=== PATIENT | female | born 1985 | race Caucasian/White ===

== ENCOUNTER → 2022-11-11 | Outpatient (CLI) | payer OTHER, MEDICAID, SELFPAY ==
--- NOTE | 2022-11-11 08:48 | RAD_ITS ---
EXAM: FL Upper GI Double Contrast with Shell Machine Operator and delayed images if performed HISTORY: HIATAL HERNIA COMPARISON: None Technique: Air contrast, fluoroscopy time of 1 minute 3 seconds, 11 fluoroscopic images obtained, radiation dose of 14.47mGy FINDINGS: Swallowing was initiated normally. No nasopharyngeal reflux or aspiration. No evidence of a Zenker''s diverticulum noted on the lateral view. Normal peristaltic activity noted in the proximal mid and distal esophagus. No intraesophageal reflux, but there was significant GE reflux noted. No significant hiatal hernia noted. The stomach distends normally without evidence of rugal folds enlargement or mucosal ulceration. There is a subtle gastric diverticulum noted along the proximal aspect of the lesser curvature of the stomach seen on image 4/5. The duodenal C-loop is not elongated and demonstrates a normal mucosal pattern. Ligament of Treitz is in its normal expected position left of the spine. RAD/Upper GI Dual Contrast IMPRESSION: GE reflux Electronically Signed: Sajan Mancuso MD at 9:39 EDT ,
== END | disposition home or self-care (01) ==
LOC: RAD 08:45
PROVIDERS: PCP Family Medicine; Referring Provider Surgery; Visit Provider Surgery
DX: K44.9 Diaphragmatic hernia without obstruction or gangrene (principal)
CPT/HCPCS: 74246

== ENCOUNTER → 2022-11-12 | Day surgery (SDC) | payer OTHER, MEDICAID, SELFPAY ==
[2022-11-12 07:40] VITALS: BP 112/75; PULSE 83; RESP 16; TEMP 37.1; O2SAT 100
[2022-11-12] MEDS: Lidocaine Jelly 2% 20 ML Syringe (URO-JET) 1 APPLIC (07:40)
== END | disposition home or self-care (01) ==
LOC: EN 07:26
PROVIDERS: PCP Family Medicine; Referring Provider Family Medicine; Visit Provider Surgery
PROC: F00ZJWZ Instrumental Swallowing and Oral Function Assessment using Swallowing Equipment (ICD-10-PCS; CPT 43235; principal; 2022-11-12 07:25)
DX: K21.9 Gastro-esophageal reflux disease without esophagitis (principal); K44.9 Diaphragmatic hernia without obstruction or gangrene
CPT/HCPCS: 91010

== ENCOUNTER 2023-01-05 10:30 | Observation (INO) | payer OTHER, MEDICAID, SELFPAY ==
--- NOTE | 2022-12-31 08:28 | EKG12_ITS ---
Test Reason : PRE-OP Blood Pressure : / mmHG Vent. Rate : 081 BPM Atrial Rate : 081 BPM P-R Int : 154 ms QRS Dur : 076 ms QT Int : 384 ms P-R-T Axes : 051 027 009 degrees QTc Int : 446 ms Normal sinus rhythm Normal ECG Confirmed by ONUR HENDERSON, SARAH ([id number]), material expeditor BETHEL CRAIG ([id number]) on 01/04/2023 8:41:37 AM Referred By: Lui Szymanski Confirmed By:SARAH MOHR MD
[2022-12-31 09:55] LABS: Hemoglobin 10.9 g/dL (12.0-15.0); Mean Corp Hgb Conc 30.3 g/dL (32-36); Mean Corpuscular Hgb 23.8 pg (27.0-32.0); Mean Corpuscular Volume 78.6 fL (81-99); Mean Platelet Vol. 11.9 fl (6.2-12.0); Platelet Count 316 K/mm3 (150-450); RBC Distribution Width CV 16.3 % (11.6-14.6); RBC Distribution Width SD 46.2 fl (35.1-43.9); Red Blood Count 4.58 M/mm3 (4.2-5.4); White Blood Count 7.1 K/mm3 (4.4-11.0)
[2022-12-31 10:30] LABS: Anion Gap 6 (5-15); BUN 12 mg/dL (7-18); BUN/Creat Ratio 13.3 RATIO (10-20); Calcium,Total 8.6 mg/dL (8.5-10.1); Chloride 107 mmol/L (98-107); EST Glomerular Filtration Rate 73 mL/min (>60); Est Glom Filt Rate - Afr Amer 89 mL/min (>60); Glucose 120 mg/dL (74-106); Potassium 3.9 mmol/L (3.5-5.1); Sodium Level 137 mmol/L (136-145)
[2023-01-05] VITALS (13 sets, daily range): BP systolic 108–131; BP diastolic 60–85; PULSE 68–85; RESP 16–18; TEMP 35.6–37; O2SAT 93–100; BMI 35.2
--- NOTE | 2023-01-05 06:44 | PCM.HP.BLA ---
History and Physical Date of Admission: 01/05/23 Allergies weed pollen Allergy (Mild, Verified 11/23/22 08:36) Itchingmethylprednisolone [From Medrol] Adverse Reaction (Mild, Verified 11/23/22 08:36) Upset Stomachcats Allergy (Intermediate, Uncoded 11/23/22 08:36) Itchingmobic Allergy (Intermediate, Uncoded 11/23/22 08:36) Rash Medications acyclovir 400 mg tablet 400 mg PO DAILY 11/05/22 [History Confirmed 11/23/22] ascorbate calcium (vitamin C) 500 mg tablet 500 mg PO DAILY 11/05/22 [History Confirmed 11/23/22] cetirizine 10 mg tablet (Zyrtec) 10 mg PO DAILY PRN 11/05/22 [History Confirmed 11/23/22] cholecalciferol (vitamin D3) 10 mcg (400 unit) capsule 10 mcg PO DAILY 11/05/22 [History Confirmed 11/23/22] escitalopram oxalate 20 mg tablet (Lexapro) 20 mg PO DAILY 11/05/22 [History Confirmed 11/23/22] lansoprazole 30 mg capsule,delayed release (Prevacid) 30 mg PO DAILY 11/05/22 [History Confirmed 11/23/22] magnesium 200 mg tablet 200 mg PO DAILY 11/05/22 [History Confirmed 11/23/22] methocarbamol 100 mg/mL injection solution (Robaxin) 1 g IM ONCE 11/05/22 [History Confirmed 11/23/22] psyllium husk 0.4 gram capsule (Daily Fiber) 0.4 g PO DAILY 11/05/22 [History Confirmed 11/23/22] sucralfate 1 gram tablet (Carafate) 1 g PO QAC 11/05/22 [History Confirmed 11/23/22] sumatriptan succinate 100 mg tablet 100 mg PO ONCE 11/05/22 [History Confirmed 11/23/22] topiramate 25 mg capsule,extended release 24 hr 25 mg PO DAILY 11/05/22 [History Confirmed 11/23/22] zinc acetate 25 mg (zinc) capsule 25 mg PO DAILY 11/05/22 [History Confirmed 11/23/22] PFSH Medical History?(Updated 11/23/22 @ 08:35 by Chelsea Evans) Gastric diverticulum GERD with esophagitis Hiatal hernia Surgical History?(Updated 11/23/22 @ 08:35 by Chelsea Evans) S/P dilatation of esophageal stricture HPI HPI HPI: 37-year-old female.? She returns to discuss her hiatal hernia and gastroesophageal reflux disease problems.? On November 11, 2022 at the [facility] she had a contrast upper GI study.? I have personally reviewed these images.? Not felt to be a significant hiatal hernia.? There is GE reflux noted.? There is a gastric diverticulum along the lesser curvature of the stomach proximally. On November 12, 2022 the patient had esophageal manometry performed at the [facility].? 10 swallows were analyzed.? There was delayed bolus transit and a few swallows but the force of the swallow appears to be normal.? Normal LES tone and residual tone.? Normal study. November 11, 2022 EXAM: FL Upper GI Double Contrast with Dry House Wheeler and delayed images if performed HISTORY: HIATAL HERNIA COMPARISON: None Technique: Air contrast, fluoroscopy time of 1 minute 3 seconds, 11 fluoroscopic images obtained, radiation dose of 14.47mGy FINDINGS: Swallowing was initiated normally. No nasopharyngeal reflux or aspiration. No evidence of a Zenker''s diverticulum noted on the lateral view. Normal peristaltic activity noted in the proximal mid and distal esophagus. No intraesophageal reflux, but there was significant GE reflux noted. No significant hiatal hernia noted. The stomach distends normally without evidence of rugal folds enlargement or mucosal ulceration. There is a subtle gastric diverticulum noted along the proximal aspect of the lesser curvature of the stomach seen on image 4/5. The duodenal C-loop is not elongated and demonstrates a normal mucosal pattern. Ligament of Treitz is in its normal expected position left of the spine. RAD/Upper GI Dual Contrast IMPRESSION: ? GE reflux ? Electronically Signed: Sajan Mancuso MD at 9:39 EDT , My previous notes reflect the following Visit Reasons:?HIATAL HERNIA Chief Complaint: hiatal hernia Allergies weed pollen Allergy (Mild, Verified 11/05/22 09:31) Itchingmethylprednisolone [From Medrol] Adverse Reaction (Mild, Verified 11/05/22 09:31) Upset Stomachcats Allergy (Intermediate, Uncoded 11/05/22 09:31) Itchingmobic Allergy (Intermediate, Uncoded 11/05/22 09:31) Rash Medications acyclovir 400 mg tablet 400 mg PO DAILY 11/05/22 [History Confirmed 11/05/22] ascorbate calcium (vitamin C) 500 mg tablet 500 mg PO DAILY 11/05/22 [History Confirmed 11/05/22] cetirizine 10 mg tablet (Zyrtec) 10 mg PO DAILY PRN 11/05/22 [History Confirmed 11/05/22] cholecalciferol (vitamin D3) 10 mcg (400 unit) capsule 10 mcg PO DAILY 11/05/22 [History Confirmed 11/05/22] escitalopram oxalate 20 mg tablet (Lexapro) 20 mg PO DAILY 11/05/22 [History Confirmed 11/05/22] lansoprazole 30 mg capsule,delayed release (Prevacid) 30 mg PO DAILY 11/05/22 [History Confirmed 11/05/22] magnesium 200 mg tablet 200 mg PO DAILY 11/05/22 [History Confirmed 11/05/22] methocarbamol 100 mg/mL injection solution (Robaxin) 1 g IM ONCE 11/05/22 [History Confirmed 11/05/22] psyllium husk 0.4 gram capsule (Daily Fiber) 0.4 g PO DAILY 11/05/22 [History Confirmed 11/05/22] sucralfate 1 gram tablet (Carafate) 1 g PO QAC 11/05/22 [History Confirmed 11/05/22] sumatriptan succinate 100 mg tablet 100 mg PO ONCE 11/05/22 [History Confirmed 11/05/22] topiramate 25 mg capsule,extended release 24 hr 25 mg PO DAILY 11/05/22 [History Confirmed 11/05/22] zinc acetate 25 mg (zinc) capsule 25 mg PO DAILY 11/05/22 [History Confirmed 11/05/22] HPI HPI HPI: 37-year-old female.? She is being referred by digestive disease consultants Dr Darren Toney with primary physician Dr Brandon Appiah for surgical consultation regarding GERD.? A written copy of my surgical consult will be returned to them. At [facility] on April 19, 2022 the patient had a right quadrant ultrasound.? Inferior laterally right hepatic lobe is a 15 x 17 x 14 mm structure consistent with hemangioma.? Previously it measured 17 x 18 x 18 mm on May 23, 2019.? There is evidence of a previous cholecystectomy.? Lesion was felt to be stable.? On May 21, [address] Toney the patient had a esophagogastroduodenoscopy with biopsy and Phoenix dilatation.? A 2 cm hiatal hernia was noted from 39 to 41 cm.? There is evidence of a distal esophageal stricture treated with a 60 Chinese Phoenix dilatation.? There were 2 sessile polyps in the body and fundus both 5 mm and excisionally biopsied.? There was felt to be a diverticulum in the fundus with a 15 mm opening.? Gastric biopsies showed reactive gastropathy with H. pylori negative.? The gastric polyps were hyperplastic polyp and a fundic gland polyp.? The GE junction showed inflamed squamocolumnar lumbar mucosa.? Rushign's was not identified. Patient has 2 concerns.? She has been having epigastric retrosternal pain.? This is been getting worse.? She has been placed on a proton pump inhibitor and Carafate.? She does not have the head of her bed elevated but she says she sleeps on a pillow that raises her up.? She stops eating food at 6 PM.? She is not a tobacco user.? She lost her father and that caused her to gain weight with her depression.? She states that she has lost 10 of the pounds that she gained. She is also complaining of a sensation at the anterior tracheal area and location of globus.? She is not sure whether her epigastric pain and globus are 1 in the same issue. She was diagnosed with reflux disease going back to 2008.? She states she can be awakened at night the pain can last all day.? She had a upper endoscopy at least in 2008 and then her most recent 01 May 2022.? She has a family history with colon cancer in her maternal grandfather and she is to be seeing Dr. Toney for a future colonoscopy. She has a known hemangioma of the liver which is unchanged.? Her cholecystectomy was in 2016 so she had the reflux symptoms and is seeding this by years. She denies any bright red blood per rectum or melena.? She states that she does not have diffuse crampy symptoms nor previously been diagnosed with IBS symptoms ROS General General: Yes weight change; No appetite, fatigue, colon cancer, breast cancer or weakness HEENT HEENT: No difficulty swallowing, eye injury, eye surgery, swollen glands or hoarseness Endo Endocrine: No thyroid disease, diabetes mellitus, thyroid cancer, Hair loss, heat intolerance or cold intolerance Skin Skin: No rash or changing moles Breast Breast: No left breast lump, right breast lump, nipple discharge, breast pain, abnormal mammogram, abnormal US or breast enlargement Musc Musculoskeletal: Yes back problems; No arthritis, rheumatoid arthritis, gout or joint pain Cardio Cardiovascular: No murmur, pacemaker, heart disease, atrial fibrillation, high blood pressure, heart attack, heart stent, palpitations, shortness of breat with exertion or chest pain Psych Psychiatric: Yes depression and anxiety; No hearing voices Resp Respiratory: No shortness of breath, No sleep apnea, No cough, No COPD, No asthma, No emphysema and No wheezing Gastro Gastrointestinal: Yes abdominal pain, Yes nausea or vomiting, No diarrhea, No constipation, No blood in stool, Yes acid reflux, No hemorrhoids, No ulcers, No gallbladder problem and No black,tarry stools Jj Hematologic: No blood thinners, No blood disorders, No bleeding, No anemia and No blood clots Neuro Neurologic: No system reviewed and no additional complaints, except as documented, No as per HPI, No abnormal gait, No abnormal hearing, No abnormal movements, No abnormal speech, No behavioral changes, No burning sensations, No confusion, No convulsions, No disequilibrium, No dizziness, No localized weakness, No frequent falls, No headache(s), No lack of coordination, No loss of vision, No memory loss, No numbness, No other visual disturbances, No radicular pain, No restless legs, No sensory deficit, No syncope, No tingling, No tremor(s), No weakness and No other Exam Const General: cooperative, healthy appearing, comfortable and no acute distress Nutritional Appearance: obese [facility] Head: normal to inspection Eyes General: appearance normal, both eyes and all related structures Neck Neck: normal visual inspection Chest Chest palpation & inspection: normal inspection of the chest Resp Effort & Inspection: normal respiratory effort Auscultation: clear to auscultation bilaterally Cardio Rate: regular rate Rhythm: regular rhythm GI Palpation: soft and no hepatosplenomegaly Auscultation: normal bowel sounds Musc Cervical Spine: normal cervical lordosis Skin General: no rashes or lesions noted Other: Multiple tattoos noted Neuro General: patient alert and patient oriented x3 Extrem General: no calf tenderness Psych Appearance: grossly normal Assessment and Plan Assessment and Plan (1) GERD with esophagitis: ?Status:?Acute (2) Hiatal hernia: ?Status:?Acute (3) S/P dilatation of esophageal stricture: ?Status:?Acute ?Plan: Gastroesophageal reflux disease with biopsy-proven esophagitis and EG junction stricture dilated.? She has ongoing escalation of symptoms despite proton pump inhibitor therapy and site of protectant. Symptoms may have escalated secondary to recent weight gain and she is trying hard to lose some of the weight that she is put on.? I certainly encourage her at trying to maintain those efforts. I have briefly spoken with her with the surgical concepts of laparoscopic repair of hiatal hernia with either partial or complete wraps.? I would like to obtain a contrast upper GI study as well as esophageal manometry.? We will then have the patient return subsequently to help discuss treatment options. Her BMI reported per Dr. Toney was approximately 32 but we have her currently at 36.? Hopefully she is able to make an impact upon that.? The patient additionally is aware that I certainly believe that her epigastric discomfort is secondary to her reflux problems.? It is less clear that I can guarantee that the globus sensation is secondary to the same so she has been instructed that those symptoms might or may not disappear with surgical repair of her reflux issues. She has had an opportunity to ask and have questions answered.? I very much appreciate the kind opportunity of assisting with her surgical care. Copy:Dr Darren Toney and Dr Brandon Szymanski M.D., F.A.C.S. ROS General General: Yes weight change; No appetite, fatigue, colon cancer, breast cancer or weakness HEENT HEENT: No difficulty swallowing, eye injury, eye surgery, swollen glands or hoarseness Endo Endocrine: No thyroid disease, diabetes mellitus, thyroid cancer, Hair loss, heat intolerance or cold intolerance Skin Skin: No rash or changing moles Breast Breast: No left breast lump, right breast lump, nipple discharge, breast pain, abnormal mammogram, abnormal US or breast enlargement Musc Musculoskeletal: Yes back problems; No arthritis, rheumatoid arthritis, gout or joint pain Cardio Cardiovascular: No murmur, pacemaker, heart disease, atrial fibrillation, high blood pressure, heart attack, heart stent, palpitations, shortness of breat with exertion or chest pain Psych Psychiatric: Yes depression and anxiety; No hearing voices Resp Respiratory: No shortness of breath, No sleep apnea, No cough, No COPD, No asthma, No emphysema and No wheezing Gastro Gastrointestinal: Yes abdominal pain, Yes nausea or vomiting, No diarrhea, No constipation, No blood in stool, Yes acid reflux, No hemorrhoids, No ulcers, No gallbladder problem and No black,tarry stools Jj Hematologic: No blood thinners, No blood disorders, No bleeding, No anemia and No blood clots Neuro Neurologic: No system reviewed and no additional complaints, except as documented, No as per HPI, No abnormal gait, No abnormal hearing, No abnormal movements, No abnormal speech, No behavioral changes, No burning sensations, No confusion, No convulsions, No disequilibrium, No dizziness, No localized weakness, No frequent falls, No headache(s), No lack of coordination, No loss of vision, No memory loss, No numbness, No other visual disturbances, No radicular pain, No restless legs, No sensory deficit, No syncope, No tingling, No tremor(s), No weakness and No other Assessment and Plan Assessment and Plan (1) S/P dilatation of esophageal stricture: ?Status:?Acute (2) Hiatal hernia: ?Status:?Acute (3) GERD with esophagitis: ?Status:?Acute (4) Gastric diverticulum: ?Status:?Acute Plan Patient states that she rarely burps or belches.? She is age 37 almost 38 so perhaps a more durable procedure in the form of a laparoscopic Renny fundoplication would be reasonable.? I did take 20 minutes [id number] time today discussing the technique benefit risk complication alternatives for laparoscopic Renny fundoplication in comparing compressive that to a laparoscopic toupet procedure.? For her I would favor the laparoscopic Renny.? She is aware of technique, benefit, risk, alternatives.? She has already received dietary and post activity instructional sheets. She did state that she is also in need of a screening colonoscopy.? She will check with her insurance and then we will schedule and proceed with that as noted.? Previous colonoscopy 2003.? Family history maternal grandfather and maternal aunt both who had colon cancer. She has had an opportunity to ask and have questions answered.? She works from home and I anticipate 1 to 2 weeks of being off from those responsibilities.? She is aware that her dietary advancement may take longer than that time period Copy:Brandon Appiah MD and Dr Darren Toney? The patient has not had any new or acute symptoms. Health regalado she is otherwise stable but she is suffering currently from allergies and some sinus congestion. Dr. Luis Enrique Rao anesthesiology is aware and the patient has been treated with allergy medications. She has had an opportunity to ask and have questions answered. History and physical was reviewed. We will proceed with planned laparoscopic repair of her hiatal hernia taking care to avoid the gastric diverticulum and do a Renny fundoplication for reflux treatment. Lui Szymanski M.D., F.A.C.S
[2023-01-05] MEDS: Lactated Ringers 1,000 ML 15 ML IV ×2 (06:46→10:51)
--- NOTE | 2023-01-05 07:13 | EX.PCM.DISCH ---
Discharge Instructions Procedure General Surgery Diet Discharge Diet: - (Diet as per office provided instructions) Activity Discharge Activity: May Not Drive (for 3-5 days or while taking narcotic pain medicine.) May shower in (days): 1 Lifting Restrictions: 10 pounds Dressing / Incision Call your doctor if your incision/area has: Continuous Slow Oozing, Sudden Increased Bleeding, Increased Pain/ Swelling, Increased Redness and Foul Smelling Discharge Call your doctor if you observe: Fever of 101 or Higher Suture Line Care: Avoid Pulling/Pushing and Avoid Pinching/Bending Additional Dressing/Incision Instructions:: Change or remove dressing in 4 days. Leave steri-strips in place for 1 week. Follow Up Care Please Follow Up With: Lui Szymanski MD When: Call [phone] to make an appointment to be seen in about 10 days. Test Results: Test results from this visit will be discussed in further detail at your follow-up appointment, if applicable. Discharge Plan Admission Attending Provider: Lui Szymanski Primary Care Provider: Brandon Appiah Discharge Orders/Prescriptions Prescriptions: No Action sucralfate [Carafate] 1 gram tablet 1 g PO QAC topiramate 25 mg capsule,extended release 24hr 50 mg PO DAILY acyclovir 400 mg tablet 400 mg PO BID escitalopram oxalate [Lexapro] 20 mg tablet 10 mg PO DAILY lansoprazole [Prevacid] 30 mg capsule,delayed release(DR/EC) 30 mg PO DAILY cetirizine [Zyrtec] 10 mg tablet 10 mg PO DAILY PRN (Reason: ALLERGIES) zinc acetate 25 mg (zinc) capsule 50 mg PO DAILY cholecalciferol (vitamin D3) 10 mcg (400 unit) capsule 10 mcg PO DAILY ascorbate calcium (vitamin C) 500 mg tablet 500 mg PO DAILY psyllium husk [Daily Fiber] 0.4 gram capsule 0.4 g PO DAILY magnesium 200 mg tablet 200 mg PO DAILY norgestimate-ethinyl estradiol [Belknap-Linyah] 0.25-35 mg-mcg tablet 1 tab PO DAILY Label Comments: Take 1 tablet by mouth once daily. rizatriptan [Maxalt] 10 mg Tablet 10 mg PO Q2H PRN (Reason: MIGRAINES) Rx Instructions: do not exceed 3 doses per 24 hrs Vitamin B-12 50 mcg Tablet 50 mcg PO DAILY methocarbamol [Robaxin] 750 mg Tablet 750 mg PO Q8H dicyclomine [Bentyl] 10 mg Capsule 10 mg PO PRN PRN (Reason: ABD CRAMPING) bupropion HCl [Wellbutrin XL] 150 mg tablet extended release 24 hr 150 mg PO DAILY Label Comments: TAKE 1 TABLET BY MOUTH EVERY DAY Referrals / Follow Up: Brandon Appiah MD [Primary Care Provider] - Disposition Disposition (needs filled in before D/C Order can be placed): Home, Self Care
[2023-01-05] MEDS: Cefazolin 2 GM in 0.9% Normal Saline 100 ML IV (07:23)
[2023-01-05] MEDS: Lubricating Jelly 60 GM Tube 30 GM (08:32)
--- NOTE | 2023-01-05 10:22 | OP.PCM_ITS ---
Report of Operation Date of Procedure: 01/05/23 Pre-Operative Diagnosis: Intractable gastroesophageal reflux disease with hiatal hernia and history of distal esophageal stricture Post-Operative Diagnosis: Same plus gastric diverticulum Surgery/Procedure Performed:: Laparoscopic repair of hiatal hernia with a laparoscopic Renny fundoplication Description of Surgical Findings:: Timeout informed consent was obtained. 37-year-old female was taken to the operating placed upon the table underwent general trach intubation esthesia OG tube was placed for decompression she was placed in a low lithotomy position she was on a bleed bag which was positioned. Then her abdomen sterilely prepped and draped. Superior in the right periumbilical area 0.5% Marcaine was instilled as local anesthetic small 5 mm incision created using a 5 mm Visiport technique access was gained to the abdomen absolutely clean access the abdomen was inflated with CO2 to a pressure of 10 mmHg pressure left periumbilical upper abdomen 10 mm trocar placed left subcostal 2 additional 5 mm trocars placed epigastric area a Susie retractor was inserted and the left lobe of the liver was elevated and secured. Gross inspection of the abdomen failed reveal any gross abnormalities. The right diana of the diaphragm was identified via [place] scalpel was used to transect tissue in this area and gradually came up over the epiphrenic ligament across the anterior surface of the esophagus taking care to avoid any vagus nerve fibers. Was able to get retroesophageal abscess rather quickly placed 1/2 inch Hermann drain and elevated at that assisted me with the dissection of the left diana of the diaphragm at that completely dissected free and complete circumferential dissection. The fundus however was quite tightly adherent to the spleen used harmonic scalpel dissection at that point had small amount of bleeding which I rapidly controlled by using a grasper and then placing a couple Hem-o-pradeep clips I did place fibrillar in that area but the hemostasis was intact and blood loss no more than 1520 cc. It is evident that a small patch of the movement spleen became a little bit dusky but. At the end vast majority the spleen was very viable. There was a small accessory spleen of the omentum anteriorly adjacent to the spleen. I continue to mobilize the fundus had the entire fundus mobilized there was evidence of the gastric diverticulum in this area of note. Having now the fundus freed I then magdaleno my attention back to improve and used 0 Ethibond sutures with small Telfa pledgets and 2 separate simple sutures of pledgeted 0 Ethibond was used to approximate the crura. Then placed a 46 Danish bougie and felt that I had good approximation and good positioning. Wrapped the fundus around posteriorly felt that had good positioning nice loose wrap approximated the left portion of the fundus to the esophagus into the epiphrenic ligament and treatment to the right portion of the fundus and secured at all with 1 suture. The gastric diverticulum was on the wrapped portion of the fundus and I elected to simply imbricate that to assure that there was not to be any future issues with that program there is a 0 Ethibond sutures pledgets and literally with a simple Lembert style suture was able to quickly imbricate that diverticulum. Magdaleno my attention back to the wrap placed another 0 after a long suture catching both portions of the wrap and the anterior wall of the esophagus. I placed an additional suture and a posterior lateral right aspect of the wrap portion to the to the diaphragm. Inspected the wrap felt that it was nicely intact and in good position. Inspected the spleen and was hemostatic. Then insufflated fluid I then did a esophagogastroscopy with a flexible scope. It easily passed the EG junction at 41 cm there is no re sistance there but as I withdrew it nicely closed insufflated the stomach did not see any air leak from the stomach there was some bubbles intermittently from behind the spleen we then carefully after inspecting the stomach same the wrap was nicely intact taking appropriate pictures I then remove the gastric wrap when we carefully inspected all aspects of the abdomen and saw no leak coming from the stomach or esophagus the bowel was just intermittently with coming lateral to the spleen felt that it was trapped air. Actually spent approximately 15 minutes with very careful inspection of this process to assure that there was no gastric leak and it is of note that the technical aspect of the procedure was very smooth and uncomplicated and there were no times during the procedure where I thought there was any potential at risk to the as he has stomach or esophagus. The fluid was aspirated free. The 10 mm trocar was removed and that was closed with a simple suture of 0 Vicryl using a grainy needle. The abdomen was allowed to deflate of the CO2 skin edges approximated opted for Monocryl subdermal stitches Steri-Strips Telfa OpSite dressings applied sponge instrument and needle counts were reported to the surgeon to be correct Specimens none. Drains none. Blood loss very minimal. Patient was taken to the recovery room in satisfied condition without apparent complication Lui Szymanski M.D., F.A.C.S. Surgeon: Lui Szymanski Type of Anesthesia: General and Local Anesthesiologist: Sulaiman Tyson
[2023-01-05] MEDS: Bupivacaine Mpf 0.5% 30 ML VIAL (10:28)
--- NOTE | 2023-01-05 11:39 | EKG12_ITS ---
Test Reason : POST OP Blood Pressure : / mmHG Vent. Rate : 068 BPM Atrial Rate : 068 BPM P-R Int : 162 ms QRS Dur : 084 ms QT Int : 426 ms P-R-T Axes : 061 027 -05 degrees QTc Int : 452 ms Normal sinus rhythm Nonspecific T wave abnormality Abnormal ECG When compared with ECG of 31-DEC-2022 08:44, No significant change was found Confirmed by ONUR HENDERSON, SARAH ([id number]), society editor BETHEL CRAIG ([id number]) on 01/07/2023 8:16:27 AM Referred By: Lui Szymanski Confirmed By:SARAH MOHR MD
[2023-01-05] MEDS: Ketorolac 30 MG/ML Syringe IV (12:09)
[2023-01-05] MEDS: Morphine 2 MG/ML Syringe IV ×3 (13:37→20:37)
[2023-01-05] MEDS: BENZOCAINE/MENTHOL 1 LOZENGE MUCOUS MEM ×3 (13:37→20:45)
[2023-01-05] MEDS: Cefazolin 1 GM/50 ML BAG IV (15:09)
[2023-01-05] MEDS: Lactated Ringers 1,000 ML 75 ML IV (15:10)
[2023-01-05] MEDS: 0.9% Saline Lock 10 ML Syringe IV ×2 (16:21→20:37)
--- NOTE | 2023-01-05 17:01 | PCM.PN.SRG ---
Subjective Subjective Patient notes shoulder and hip pain and sore throat. Some moderate epigastric discomfort. No nausea Objective Data Objective Data Vital Signs: Vital Signs Temp Pulse Resp BP Pulse Ox O2 Del Method O2 Flow Rate 97.9 F 79 16 116/68 98 Room Air 2 01/05/23 15:00 01/05/23 15:00 01/05/23 15:00 01/05/23 15:00 01/05/23 15:00 01/05/23 15:00 01/05/23 11:45 Oxygen Flow Rate (L/min) 2 Oxygen Delivery Method Room Air Weight: 211 lb 10.3 oz Body Mass Index (BMI) 35.2 Intake & Output: Intake and Output for Last 24 Hours 01/03/23 01/04/23 01/05/23 23:59 23:59 23:59 Intake Total 2162.5 / 2162.5 Balance 2162.5 / 2162.5 Lab / Micro Data Result Diagrams: 12/31/22 08:31 12/31/22 08:31 Physical Exam GI GI Narrative: Abdomen is soft, slightly distended, minimal tenderness in the epigastric area, bilateral upper quadrant soft Assessment & Plan Assessment/Plan (1) GERD with esophagitis: PLAN: Patient appears to be clinically stable. I will initiate clear liquids. Plan on holding onto her overnight mostly for pain control. We will do a serial exam tomorrow morning. Lui Szymanski M.D., F.A.C.S.
[2023-01-05] MEDS: HYDROcodone Bitartrate/Apap 5/325 Tablet PO ×2 (17:21→18:03)
[2023-01-05] MEDS: Acyclovir 200 MG Capsule 400 MG PO (20:46)
[2023-01-06 00:43] VITALS: BP 133/78; PULSE 77; RESP 18; TEMP 36.6; O2SAT 98
[2023-01-06] MEDS: HYDROcodone Bitartrate/Apap 5/325 Tablet PO ×3 (00:44→12:29)
[2023-01-06] MEDS: Lactated Ringers 1,000 ML 75 ML IV (03:01)
[2023-01-06] MEDS: BENZOCAINE/MENTHOL 1 LOZENGE MUCOUS MEM ×2 (03:01→12:29)
--- NOTE | 2023-01-06 03:56 | NURSING ---
0330 Pt continues to refuse to walk a lap around the unit. She has gotten up mult. times to go to the bathroom. States she feels a lot of pain; PRN Oxy and Morphine given. Drsgs intact, minimal drainage observed at the beg. of shift and marked. 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 SCDs on. Tolerating liquid diets well.
[2023-01-06 05:15] VITALS: BP 120/71; PULSE 79; RESP 18; TEMP 36.8; O2SAT 97
--- NOTE | 2023-01-06 06:02 | PCM.PN.SRG ---
Subjective Subjective Patient complains of shoulder tip pain and upper abdominal pain. Nausea last night after being given morphine. She has tolerated clear liquids with no reflux in EC passage. Objective Data Objective Data Vital Signs: Vital Signs Temp Pulse Resp BP Pulse Ox O2 Del Method O2 Flow Rate 98.2 F 79 18 120/71 97 Room Air 2 01/06/23 05:15 01/06/23 05:15 01/06/23 05:15 01/06/23 05:15 01/06/23 05:15 01/06/23 05:15 01/05/23 11:45 Oxygen Flow Rate (L/min) 2 Oxygen Delivery Method Room Air Weight: 211 lb 10.3 oz Body Mass Index (BMI) 35.2 Intake & Output: Intake and Output for Last 24 Hours 01/04/23 01/05/23 01/06/23 23:59 23:59 23:59 Intake Total 2284.75 / 2584.75 1462.5 / 1462.5 Balance 2284.75 / 2584.75 1462.5 / 1462.5 Lab / Micro Data Result Diagrams: 12/31/22 08:31 12/31/22 08:31 Physical Exam GI GI Narrative: Guarding in the upper abdomen, softer in the lower abdomen Assessment & Plan Assessment/Plan (1) GERD with esophagitis: PLAN: Need to mobilize patient. She has only been out of bed to go to the bathroom. Need to ambulate. We will continue with clear liquids. We will check a CBC. Anticipate discharge later today. Lui Szymanski M.D., F.A.C.S.
[2023-01-06 06:51] LABS: Absolute Lymphocyte Count 1.81 X10^3/uL (0.83-4.51); Absolute Neutrophil Count 5.8 X10^3/uL (2.0-7.7); Basophil# 0.03 X10^3/uL; Basophil% 0.3 % (0-1); Eosinophil# 0.22 X10^3/uL; Eosinophils% 2.5 % (0-5); Hematocrit 31.7 % (37-47); Hemoglobin 9.8 g/dL (12.0-15.0); Lymphocyte # 1.81 X10^3/ul (0.83-4.51); Lymphocyte % 20.9 % (19-41); Mean Corp Hgb Conc 30.9 g/dL (32-36); Mean Corpuscular Hgb 24.6 pg (27.0-32.0); Mean Corpuscular Volume 79.4 fL (81-99); Mean Platelet Vol. 11.2 fl (6.2-12.0); Monocyte# 0.74 X10^3/uL; Monocyte% 8.6 % (0-10); NRBC Flagged by Analyzer 0 % (0-5); Neutrophil # 5.82 X10^3/uL (2.7-7.7); Neutrophil % 67.4 % (47-70); Platelet Count 222 K/mm3 (150-450); RBC Distribution Width CV 16.1 % (11.6-14.6); RBC Distribution Width SD 45.8 fl (35.1-43.9); Red Blood Count 3.99 M/mm3 (4.2-5.4); White Blood Count 8.7 K/mm3 (4.4-11.0)
[2023-01-06] MEDS: Loratadine 10 MG Tablet PO (06:54)
[2023-01-06 07:25] VITALS: O2SAT 96
[2023-01-06] MEDS: Escitalopram Oxalate 10 MG Tablet PO (09:04)
[2023-01-06] MEDS: buPROPion (XL) 150 MG TABLET.XL PO (09:04)
[2023-01-06] MEDS: Acyclovir 200 MG Capsule 400 MG PO (09:04)
[2023-01-06] MEDS: Methocarbamol 750 MG Tablet PO (09:04)
[2023-01-06] MEDS: Topiramate 25 MG Tablet 50 MG PO (09:04)
[2023-01-06] MEDS: Lansoprazole 15 MG Capsule.DR 30 MG PO (09:04)
[2023-01-06] MEDS: Psyllium 1 PACKET PO (09:05)
[2023-01-06] MEDS: Dicyclomine 10 MG Capsule PO (12:32)
== END 2023-01-06 14:15 | disposition home or self-care (01) ==
LOC: SDC 12:35 → MS3 12:35
PROVIDERS: Admitting Provider Surgery; PCP Family Medicine; Referring Provider Surgery; Visit Provider Surgery
PROC: (CPT 43325; principal; 2023-01-05 07:10)
DX: K44.9 Diaphragmatic hernia without obstruction or gangrene (principal); K22.2 Esophageal obstruction; K21.00 Gastro-esophageal reflux disease with esophagitis, without bleeding; Z79.899 Other long term (current) drug therapy; K31.4 Gastric diverticulum
CPT/HCPCS: 43280; 00790; 36415; 80048; 85025; 85027; 93005; 94668; 96361; 96365; 96375; 96376; 99221; 99252; J7120; A4216; G0378; G0463; J2405

== ENCOUNTER → 2023-02-07 | Outpatient (CLI) | payer OTHER, MEDICAID, SELFPAY ==
--- NOTE | 2023-02-07 18:55 | CT_ITS ---
EXAM: CT ABDOMEN AND PELVIS WITH INTRAVENOUS CONTRAST CLINICAL INDICATION: LUQ pain TECHNIQUE: Helically acquired images were obtained of the abdomen and pelvis with intravenous contrast. This CT exam was performed using one or more of the following dose reduction techniques: automated exposure control, adjustment of the mA and/or kV according to patient size, and/or use of iterative reconstruction technique. CONTRAST: 100 cc of Isovue-370 IV. With oral contrast. RADIATION DOSE: CTDIvol = 15.04 mGy, DLP = 1064.36 mGy-cm COMPARISON: No relevant prior studies available. FINDINGS: LOWER THORAX: Unremarkable. Lung bases are clear. No cardiomegaly. No significant pericardial effusion. ABDOMEN: LIVER: Low-density mass measuring 1.2 cm segment V right lobe of the liver. There is diffuse low-attenuation of the liver. GALLBLADDER AND BILE DUCTS: Cholecystectomy. No intra- or extrahepatic biliary ductal dilation. PANCREAS: Unremarkable. No focal cystic or solid mass. SPLEEN: Unremarkable. Normal size without focal cystic or solid mass. ADRENALS: Unremarkable. No nodules. KIDNEYS AND URETERS: Unremarkable. Normal renal size and position. No hydronephrosis. STOMACH AND BOWEL: Unremarkable. No stomach or bowel distention. No focal inflammatory change. PELVIS: APPENDIX: Normal appendix. BLADDER: Unremarkable. REPRODUCTIVE: Cyst measuring 3.8 cm right adnexa. ABDOMEN and PELVIS: INTRAPERITONEAL SPACE: Unremarkable. No ascites or other fluid collection. No free air. BONES/JOINTS: Unremarkable. No suspicious lytic or blastic abnormality. SOFT TISSUES: Unremarkable. No discrete abdominal or pelvic wall hernia. VASCULATURE: Unremarkable. Abdominal aorta is non-dilated. LYMPH NODES: Unremarkable. No enlarged lymph nodes. CT/Abdomen/Pelvis WITH Contrast IMPRESSION: 1. Low-density mass measuring 1.2 cm segment V right lobe of the liver. Recommend hepatic MR. 2. Fatty liver. 3. Cholecystectomy. 4. Cyst measuring 3.8 cm right adnexa. No follow-up is necessary. Electronically Signed: Ghulam Marquez MD at 2:22 EDT ,
== END | disposition home or self-care (01) ==
PROVIDERS: PCP Family Medicine; Referring Provider Physician Assistant; Visit Provider Physician Assistant
DX: R10.12 Left upper quadrant pain (principal)
CPT/HCPCS: 74177; Q9967